=== PATIENT | female | born 1980 | race African-American/Black ===

== ENCOUNTER 2017-03-12 17:54 | Emergency (ER) | payer OTHER ==
[2017-03-12 19:08] LABS: ADD MAN DIFF? NO
[2017-03-12 19:10] LABS: BASO # 0.1 x10^3/uL (0.0-0.2); BASO % 1 % (0-3); EOS # 0.1 x10^3/uL (0.0-0.7); EOS % 2 % (0-3); HEMATOCRIT 34.5 % (36.0-47.0); HEMOGLOBIN 11.6 g/dL (12.0-15.5); LYMPH % 42 % (24-48); MEAN CORPUSCULAR HEMOGLOBIN 29 pg (25-35); MEAN CORPUSCULAR HGB CONC 34 g/dL (31-37); MEAN CORPUSCULAR VOLUME 84 fL (79-100); MONO # 0.3 x10^3/uL (0.0-1.1); MONO % 4 % (0-9); NEUT # 3.6 x10^3uL (1.8-7.7); NEUT % 51 % (31-73); PLATELET COUNT 448 x10^3/uL (140-400); RED BLOOD COUNT 4.09 x10^6/uL (3.50-5.40); RED CELL DISTRIBUTION WIDTH 16.3 % (11.5-14.5); WHITE BLOOD COUNT 7.1 x10^3/uL (4.0-11.0)
[2017-03-12 19:20] LABS: ANION GAP 11 (6-14); BLOOD UREA NITROGEN 10 mg/dL (7-20); BUN/CREATININE RATIO 13 (6-20); CALCIUM 9.1 mg/dL (8.5-10.1); CARBON DIOXIDE 26 mmol/L (21-32); CHLORIDE 103 mmol/L (98-107); CREATININE 0.8 mg/dL (0.6-1.0); GFR 99.4; GLUCOSE 92 mg/dL (70-99); POTASSIUM 3.6 mmol/L (3.5-5.1); SODIUM 140 mmol/L (136-145)
[2017-03-12 19:20] LABS: URINE HCG POC HCG NEGATIVE (Negative)
[2017-03-12 19:26] LABS: ALBUMIN 4.3 g/dL (3.4-5.0); ALK PHOS 55 U/L (46-116); ALT (SGPT) 19 U/L (14-59); AST (SGOT) 16 U/L (15-37); BILIRUBIN,URINE SMALL (NEG); CLARITY,URINE CLEAR; COLOR,URINE YELLOW; GLUCOSE,URINE NEGATIVE (NEG); LIPASE 68 U/L (73-393); NITRITE,URINE NEGATIVE (NEG); PROTEIN,URINE NEGATIVE (NEG-TRACE); TOTAL BILIRUBIN 0.3 mg/dL (0.2-1.0); TOTAL PROTEIN 8.7 g/dL (6.4-8.2); UROBILINOGEN,URINE 0.2 mg/dL (0.2 mg/dL)
[2017-03-12 19:32] LABS: BACTERIA,URINE MODERATE /HPF (0-FEW); RBC,URINE OCC /HPF (0-2); WBC,URINE 20-40 /HPF (0-4)
[2017-03-12 19:33] LABS: SQUAMOUS EPITHELIAL CELL,UR MOD /LPF; TRICHOMONAS,URINE PRESENT
[2017-03-12] MEDS: HYDROcodone/APAP 5/325MG 1 TAB TABLET PO ×2 (20:02)
[2017-03-12] MEDS ORDERED: LIDOCAINE 1% PF 2 ML VIAL. ×2 (20:43)
[2017-03-12] MEDS: cefTRIAXone IM 250 MG VIAL IM ×2 (20:51)
[2017-03-12] MEDS: AZITHROMYCIN 250 MG TABLET. PO ×2 (20:54)
[2017-03-14 20:11] LABS: CHLAMYDIA PROBE Negative (Negative); GC PROBE Negative (Negative)
== END 2017-03-12 21:07 | disposition home or self-care (01) ==
LOC: ER 17:54
DX: R10.9 Unspecified abdominal pain (principal); N89.8 Other specified noninflammatory disorders of vagina; Z88.5 Allergy status to narcotic agent
CPT/HCPCS: 36415; 76830; 76856; 80053; 81001; 81025; 83690; 85025; 87086; 87491; 87591; 96372; 99285-25; J0696; Q0111; Q0144

== ENCOUNTER 2017-04-29 20:58 | Emergency (ER) | payer OTHER ==
[2017-04-29 21:41] LABS: URINE HCG POC HCG NEGATIVE (Negative)
[2017-04-29 21:41] LABS: BILIRUBIN,URINE SMALL (NEG); CLARITY,URINE CLEAR; COLOR,URINE YELLOW; GLUCOSE,URINE NEGATIVE (NEG); NITRITE,URINE NEGATIVE (NEG); PROTEIN,URINE NEGATIVE (NEG-TRACE); UROBILINOGEN,URINE 0.2 mg/dL (0.2 mg/dL)
[2017-04-29 21:48] LABS: BACTERIA,URINE FEW /HPF (0-FEW); RBC,URINE 0 /HPF (0-2); SQUAMOUS EPITHELIAL CELL,UR MANY /LPF
[2017-04-29] MEDS: fentaNYL PF VIAL 100 MCG/2 ML VIAL IV (21:55)
[2017-04-29 21:56] LABS: ADD MAN DIFF? NO
[2017-04-29] MEDS: KETOROLAC 30 MG/ML INJ. IV (21:56)
[2017-04-29] MEDS: ONDANSETRON PF 4 MG/2 ML VIAL. IV (21:56)
[2017-04-29 21:57] LABS: BASO # 0.1 x10^3/uL (0.0-0.2); BASO % 1 % (0-3); EOS # 0.2 x10^3/uL (0.0-0.7); EOS % 3 % (0-3); HEMATOCRIT 34.1 % (36.0-47.0); HEMOGLOBIN 11.5 g/dL (12.0-15.5); LYMPH # 2.7 x10^3/uL (1.0-4.8); LYMPH % 44 % (24-48); MEAN CORPUSCULAR HEMOGLOBIN 29 pg (25-35); MEAN CORPUSCULAR HGB CONC 34 g/dL (31-37); MEAN CORPUSCULAR VOLUME 85 fL (79-100); MONO # 0.3 x10^3/uL (0.0-1.1); MONO % 5 % (0-9); NEUT # 2.9 x10^3uL (1.8-7.7); NEUT % 46 % (31-73); PLATELET COUNT 409 x10^3/uL (140-400); RED BLOOD COUNT 4.01 x10^6/uL (3.50-5.40); RED CELL DISTRIBUTION WIDTH 16.4 % (11.5-14.5); WHITE BLOOD COUNT 6.2 x10^3/uL (4.0-11.0)
[2017-04-29 22:08] LABS: ANION GAP 8 (6-14); BLOOD UREA NITROGEN 8 mg/dL (7-20); BUN/CREATININE RATIO 10 (6-20); CALCIUM 8.8 mg/dL (8.5-10.1); CARBON DIOXIDE 26 mmol/L (21-32); CHLORIDE 107 mmol/L (98-107); CREATININE 0.8 mg/dL (0.6-1.0); GFR 99.4; GLUCOSE 113 mg/dL (70-99); POTASSIUM 3.8 mmol/L (3.5-5.1); SODIUM 141 mmol/L (136-145)
[2017-04-29 22:14] LABS: ALBUMIN 3.7 g/dL (3.4-5.0); ALK PHOS 56 U/L (46-116); ALT (SGPT) 21 U/L (14-59); AST (SGOT) 12 U/L (15-37); TOTAL BILIRUBIN 0.4 mg/dL (0.2-1.0); TOTAL PROTEIN 7.5 g/dL (6.4-8.2)
[2017-04-29] MEDS: FLUCONAZOLE 100 MG TABLET. PO (23:12)
[2017-05-01 14:23] LABS: CHLAMYDIA PROBE Negative (Negative); GC PROBE Negative (Negative)
== END 2017-04-29 23:17 | disposition home or self-care (01) ==
LOC: ER 20:58
DX: B37.3 Candidiasis of vulva and vagina (principal); N76.0 Acute vaginitis; B96.89 Other specified bacterial agents as the cause of diseases classified elsewhere; K58.9 Irritable bowel syndrome, unspecified; Z88.5 Allergy status to narcotic agent
CPT/HCPCS: 36415; 80053; 81001; 81025; 85025; 87086; 87491; 87591; 96374; 96375; 99284-25; J1885; J2405; J3010; Q0111

== ENCOUNTER 2019-09-10 15:36 | Emergency (ER) | payer MEDICAID, OTHER ==
[~2019-09-10] VITALS: Ht 170.2 cm; Wt 105.0 kg
[~2019-09-10 15:36] MED LIST: CEPH-264 PO; DOXY1TAB3 PO; ERYT1OIN6 EACHEYE; FLUC150T PO; HYDR-2761 PO; LINZESS290 MCG PO; METR500T PO; NAPR-683 PO; NITR100C62 PO; ONDA4TAB10 SL
[2019-09-10 15:41] VITALS: BP 123/80
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
--- NOTE | 2019-09-10 16:24 | RAD ---
Two-view right tibia-fibula and three-view right ankle dated 09/10/2019. No comparison available. Clinical data indication: Pain after injury. FINDINGS: 2 views right tibia-fibula show normal bony alignment. No displaced fracture. No acute osseous or articular abnormality. No periostitis or bone destruction. 3 views the right ankle show normal bony alignment. No displaced fracture. No acute osseous or articular abnormality. The talar dome is intact. IMPRESSION: No acute radiographic abnormality. Electronically signed by: Devon Yao MD (09/10/2019 4:21 PM) [facility]
== END 2019-09-10 17:15 | disposition home or self-care (01) ==
LOC: ER 15:36
DX: M79.671 Pain in right foot (principal); M25.571 Pain in right ankle and joints of right foot; M54.5 Low back pain; Z98.890 Other specified postprocedural states; Z88.5 Allergy status to narcotic agent
CPT/HCPCS: 73590; 73610; 99284